=== PATIENT | female | born 1985 | race Two or more races ===

== ENCOUNTER 2020-07-16 12:11 | Emergency (ER) | payer MEDICAID, OTHER ==
[~2020-07-16] VITALS: Ht 167.6 cm; Wt 110.7 kg
[2020-07-16 13:29] LABS: Urine Bacteria FEW /hpf (None Seen); Urine Blood 3+ /uL (Negative); Urine Hyaline Cast FEW /lpf (0 - 2); Urine Mucus FEW (None Seen); Urine Specific Gravity 1.024 (1.001-1.035); Urine WBC 21 /hpf (0 - 5)
[2020-07-16 18:14] VITALS: BP 148/92
== END 2020-07-16 18:12 | disposition home or self-care (01) ==
LOC: ER 12:11
DX: O23.41 Unspecified infection of urinary tract in pregnancy, first trimester (principal); O20.8 Other hemorrhage in early pregnancy; Z3A.10 10 weeks gestation of pregnancy
CPT/HCPCS: 36415; 76801; 81001; 84702